=== PATIENT | male | born 1935 | race Caucasian/White ===

== ENCOUNTER 2017-03-08 11:00 | Outpatient (CLI) | payer MEDICARE ==
[~2017-03-08 11:00] MED LIST: AMBIEN 5MG TAB5 MG PO; ASPIRIN 81MG TA81 MG PO; COLCHICINE0.6 M4 PO; COREG 6.25MG6.25 MG PO; HUMALOG100 U/ML SC; IRON TABLETS325 MG PO; LASIX 40MG. TAB40 MG PO; LASIX20 MG PO; LEVOTHYROXIN0.088 MG PO; PLAVIX 75MG TAB75 MG PO; VITAMIN D31000 IU PO
[2017-03-08 11:17] VITALS: BP 123/43
== END 2017-03-08 11:35 | disposition home or self-care (01) ==
LOC: COP 11:00
DX: N18.4 Chronic kidney disease, stage 4 (severe) (principal); D63.1 Anemia in chronic kidney disease
CPT/HCPCS: J0885